=== PATIENT | male | born 1970 | race Hispanic/Latino ===

== ENCOUNTER → 2018-06-06 | Outpatient (CLI) | payer BC ==
--- NOTE | 2018-06-06 16:14 | Diagnostic Imaging Report ---
EXAMINATION: Scrotal ultrasound CLINICAL INDICATION: Testicular pain. COMPARISON: None. TECHNIQUE: Grayscale and color Doppler evaluation of the scrotum was performed in transverse and longitudinal planes. FINDINGS: The right testicle measures 4.2 x 2.2 x 3.5 cm. There are no masses or calcifications.. The right epididymis measures 1 x 0.4 x 0.6 cm. No nodules or masses.. There is no evidence of right hydrocele or varicocele. There is normal flow to the right testicle, without evidence of torsion. The left testicle measures 4.1 x 2 x 3.2 cm. There are no masses or calcifications.. The left epididymis measures 0.7 x 0.5 x 0.6 cm. No nodules or masses.. There is no evidence of left hydrocele or varicocele. There is normal flow to the left testicle without evidence of torsion. The scrotum has a normal appearance, without focal lesions. Impression: Unremarkable sonographic appearance of the testes and scrotal contents. Signed by: Dr. Kishore Martinez M.D. on 06/06/2018 4:11 PM
== END ==
LOC: US 14:17
PROVIDERS: ATTEND Family Medicine
DX: N50.819 Testicular pain, unspecified (principal)
CPT/HCPCS: 76870; 93976